=== PATIENT | female | born 1990 | race Caucasian/White ===

== ENCOUNTER 2016-10-14 18:44 | Emergency (ER) | payer OTHER ==
[~2016-10-14] VITALS: Ht 167.6 cm; Wt 84.5 kg
[~2016-10-14 18:44] MED LIST: FER325 PO; PREN-39 PO
[2016-10-14 18:48] VITALS: Ht 167.6 cm; Wt 84.5 kg
[2016-10-14] MEDS ORDERED: TRAM50TA2 PO (21:47)
[2016-10-14] MEDS ORDERED: SULF1TAB31 PO (21:47)
[2016-10-14] MEDS ORDERED: IBUP-1542 PO (21:47)
[2016-10-14] MEDS ORDERED: CEPH-443 PO (21:47)
[2016-10-14 22:04] VITALS: BP 125/69; PULSE 80; RESP 18; TEMP 98.7
--- NOTE | 2016-10-14 22:10 | ERD ---
ER Documentation Chief Complaint Date/Time DATE: 10/14/16 TIME: 22:06 Chief Complaint Pt reports pain above buttock area today HPI 26-year-old female presents here in emergency department for complaints of left upper buttock pain and bump patient did and noticed today. Patient describes the pain as throbbing pain 4/10 scale, is worse upon touching the area. Patient denies any open wounds. Patient denies any fever or chills. Patient did not take any medications to symptoms. ROS All systems reviewed and are negative except as per history of present illness. Medications Home Meds Active Scripts Tramadol HCl (Tramadol HCl) 50 Mg Tablet, 50 MG PO Q6 for SEVERE PAIN LEVEL 7-10 , #20 TAB Prov:JUDI CLOUD NP 10/14/16 Ibuprofen* (Motrin*) 600 Mg Tab, 600 MG PO Q6H Y for PAIN AND OR ELEVATED TEMP, #30 TAB Prov:JUDI CLOUD NP 10/14/16 Cephalexin* (Keflex*) 500 Mg Capsule, 500 MG PO QID for 10 Days, CAP Prov:JUDI CLOUD NP 10/14/16 Sulfamethoxazole/Trimethoprim* (Bactrim Ds* Tablet) 1 Each Tablet, 1 TAB PO BID , #20 TAB Prov:JUDI CLOUD NP 10/14/16 Reported Medications Ferrous Sulfate* (Ferrous Sulfate*) 325 Mg Tabec, 325 MG PO DAILY, TAB 02/13/15 Vits W-Ca,Fe,Fa(<1MG) ( Vitamins) 1 Tab Tablet, 1 TAB PO DAILY 11/30/14 Allergies Allergies: Coded Allergies: No Known Allergy (Unverified , 02/17/15) PMhx/Soc Medical and Surgical Hx: pt denies Medical Hx, pt denies Surgical Hx Hx Alcohol Use: No Hx Substance Use: No Hx Tobacco Use: No Smoking Status: Never smoker FmHx Family History: No coronary disease, No diabetes, No other Physical Exam Vitals Vital Signs Date Time Temp Pulse Resp B/P Pulse Ox O2 Delivery O2 Flow Rate FiO2 10/14/16 22:04 98.7 80 18 125/69 99 Room Air 10/14/16 18:48 99.9 87 16 127/69 97 Physical Exam GENERAL: The patient is well developed and appropriate for usual state of health, in no apparent distress. CHEST: Clear to auscultation bilaterally. There are no rales, wheezes or rhonchi. HEART: Regular rate and rhythm. No murmurs, clicks, rubs or gallops. No S3 or S4. ABDOMEN: Soft, nontender and nondistended. Good bowel sounds. No rebound or guarding. No gross peritonitis. No gross organomegaly or masses. No Santillan sign or McBurney point tenderness. BACK: No midline or flank tenderness. EXTREMITIES: Equal pulses bilaterally. There is no peripheral clubbing, cyanosis or edema. No focal swelling or erythema. Full range of motion. Grossly neurovascularly intact. NEURO: Alert and oriented. Cranial nerves 2-12 intact. Motor strength in all 4 extremities with 5/5 strength. Sensation grossly intact. Normal speech and gait. SKIN: Noted 2 cm induration on the left upper buttock area, no fluctuance noted , no erythema noted, mild tenderness on palpation noted. There is no apparent ecchymosis or petechia. The skin is warm and dry. HEMATOLOGIC AND LYMPHATIC: There is no evidence of excessive bruising or lymphedema. No gross cervical, axillary, or inguinal lymphadenopathy. Procedures/MDM Medical decision making: Patient's symptoms was likely consistent with an early soft tissue abscess of the affected area, no symptoms of any pilonidal cyst abscess, no symptoms of any fluctuance at this time that needs to have incision and drainage. Trial with oral antibiotics will be started at this time. No symptoms of sepsis at this time. Patient appears well and is hemodynamically stable. No symptoms of any hemorrhoids or any thrombosed hemorrhoids. Prescription was given for Bactrim, Keflex, and ibuprofen and tramadol, is advised to follow-up in 2 days for reevaluation of symptoms. Patient was advised to return to emergency department any worsening symptoms. Disposition: Home. Stable. Departure Diagnosis: Primary Impression: Soft tissue abscess Condition: Stable Patient Instructions: Abscess, Incision And Drainage JUDI CLOUD NP Oct 14, 2016 22:10
== END 2016-10-14 22:09 | disposition home or self-care (01) ==
LOC: FTE 18:44
DX: L02.31 Cutaneous abscess of buttock (principal)
CPT/HCPCS: 99284

== ENCOUNTER 2016-10-18 17:25 | Emergency (ER) | payer OTHER ==
[~2016-10-18] VITALS: Ht 165.1 cm; Wt 84.5 kg
[~2016-10-18 17:25] MED LIST changes: +CEPH-443 PO; +IBUP-1542 PO; +SULF1TAB31 PO; +TRAM50TA2 PO
[2016-10-18 17:33] VITALS: Ht 165.1 cm; Wt 84.5 kg
[2016-10-18] MEDS ORDERED: LIDOCAINE 1% (MDV) 20 ML INJ SC ONE (18:30)
[2016-10-18] MEDS ORDERED: IBUP-1542 PO (19:12)
[2016-10-18 19:30] VITALS: BP 109/56; PULSE 101; RESP 18
--- NOTE | 2016-10-18 20:21 | ERD ---
ER Documentation Chief Complaint Date/Time DATE: 10/18/16 TIME: 20:15 Chief Complaint POSSIBLE ABSCESS ON COCCYX AREA,PAIN 6/10 HPI 26-year-old female presented complaining of painful bump in her coccyx area 2 weeks. She is unable to sit because of pain. She has seen by PCP and was given antibiotics. Denies fever or chills. Denies injury. Denies difficulty with bowel movement. ROS All systems reviewed and are negative except as per history of present illness. Medications Home Meds Active Scripts Ibuprofen* (Motrin*) 600 Mg Tab, 600 MG PO Q6H Y for PAIN AND OR ELEVATED TEMP, #30 TAB Prov:JOANNE WALSH EQU[employer]DER 10/18/16 Tramadol HCl (Tramadol HCl) 50 Mg Tablet, 50 MG PO Q6 for SEVERE PAIN LEVEL 7-10 , #20 TAB Prov:JUDI CLOUD EQUITY HOLDER 10/14/16 Ibuprofen* (Motrin*) 600 Mg Tab, 600 MG PO Q6H Y for PAIN AND OR ELEVATED TEMP, #30 TAB Prov:JUDI CLOUD EQUITY HOLDER 10/14/16 Cephalexin* (Keflex*) 500 Mg Capsule, 500 MG PO QID for 10 Days, CAP Prov:JUDI CLOUD NP 10/14/16 Sulfamethoxazole/Trimethoprim* (Bactrim Ds* Tablet) 1 Each Tablet, 1 TAB PO BID , #20 TAB Prov:JUDI CLOUD EQU[employer] H[employer]DER 10/14/16 Reported Medications Ferrous Sulfate* (Ferrous Sulfate*) 325 Mg Tabec, 325 MG PO DAILY, TAB 02/13/15 Vits W-Ca,Fe,Fa(<1MG) ( Vitamins) 1 Tab Tablet, 1 TAB PO DAILY 11/30/14 Allergies Allergies: Coded Allergies: No Known Allergy (Unverified , 02/17/15) PMhx/Soc Medical and Surgical Hx: pt denies Medical Hx, pt denies Surgical Hx Hx Alcohol Use: No Hx Substance Use: No Hx Tobacco Use: No Smoking Status: Never smoker Physical Exam Vitals Vital Signs Date Time Temp Pulse Resp B/P Pulse Ox O2 Delivery O2 Flow Rate FiO2 10/18/16 19:30 101 18 109/56 100 Room Air 10/18/16 17:33 98.8 98 18 133/66 98 Physical Exam General: Well-developed, well-nourished, conscious and coherent, in no distress Skin: Warm and dry, good texture and turgor. A 2 cm x 3 cm area of lesion that is tender, and fluctuant in the pilonidal region. Head: Normocephalic without evidence of trauma Eyes: Sclera and conjunctivae normal; pupils equal, round, and reactive to light; extraocular movements are intact Chest: Normal AP diameter. Good expansion without retractions. Nontender. Lungs are clear to auscultate bilaterally with good tidal volume Heart: Regular rate and rhythm. No murmur, rub, or gallops heard Pelvis: Nontender to palpation and stable to compression Extremities: Full range of motion. Good strength bilaterally. No clubbing, cyanosis, or edema. Peripheral pulses are intact. Sensation intact Neuro: Alert and oriented 4, GCS 15. Cranial nerves grossly intact. Motor and sensory exams nonfocal. Moves all extremities. Speech clear. Gait normal Results 24 hrs Current Medications Medications (Trade) Dose Ordered Sig/Christy Route PRN Reason Start Time Stop Time Status Last Admin Dose Admin Lidocaine (Xylocaine 1% (Mdv) 20 ml) 20 ml ONCE ONCE SC 10/18/16 18:30 10/18/16 18:31 DC Procedures/MDM Well-appearing 26-year-old female presented ED with pilonidal cyst abscess. Procedure note: Incision and Drainage Verbal consent obtained for incision and drainage of patient's abscess. The area was prepped with Betadine. Lidocaine 1% was infiltrated for local anesthesia. After appropriate anesthesia, incision was made using #11 blade. Copious amount of purulent discharge was drained from the abscess. The abscess was probed for loculation. Iodoform 1/4" packing tape was inserted into the abscess. The wound was then cleaned and dressed. Patient tolerated procedure well. Patient had already received antibiotic treatment. I do not feel additional antibiotic is needed at this time after the I&D. Patient appears well, stable for discharge and outpatient management. Medical decision making shared with patient and family. Education provided to patient and family. Patient and family expressed understanding of the plan. Medications on discharge: Ibuprofen. Follow-up: Primary care provider in 2-3 days or return to ED if worse. Disclaimer: Inadvertent spelling and grammatical errors are likely due to EHR/ dictation software use and do not reflect on the overall quality of patient care. Also, please note that the electronic time recorded on this note does not necessarily reflect the actual time of the patient encounter. Departure Diagnosis: Primary Impression: Pilonidal cyst with abscess Condition: Stable Patient Instructions: Pilonidal Cyst, Infected (Incision And Drainage) Additional Instructions: Regrese a estas instalaciones dentro de [facility] para un examen de seguimiento.Regrese antes si [place] condicin se empeora. JOANNE WALSH. DEVYN Oct 18, 2016 20:21
== END 2016-10-18 19:30 | disposition home or self-care (01) ==
LOC: FTE 17:25
DX: L05.01 Pilonidal cyst with abscess (principal)
CPT/HCPCS: 10080; Z7502; Z7610